=== PATIENT | female | born 1990 | race Caucasian/White ===

== ENCOUNTER → 2017-07-14 | Outpatient (CLI) | payer BC | END | disposition home or self-care (01) | LOC: C.PAPS 13:23 | PROVIDERS: ATTEND Obstetrics & Gynecology | DX: Z01.419 Encounter for gynecological examination (general) (routine) without abnormal findings (principal) ==

== ENCOUNTER → 2017-07-14 | Outpatient (CLI) | payer BC ==
[2017-07-17 11:12] LABS: CHLAMYDIA TRACH RNA*** NOT DETECTED (NOT DETECTED); GC (NEIS GONORRHOEAE)RNA** NOT DETECTED (NOT DETECTED)
== END | disposition home or self-care (01) ==
LOC: C.LABSPEC 13:45
PROVIDERS: ATTEND Obstetrics & Gynecology
DX: Z11.3 Encounter for screening for infections with a predominantly sexual mode of transmission (principal)